=== PATIENT | male | born 1990 | race Caucasian/White ===

== ENCOUNTER → 2021-09-21 | Emergency (ER) | payer OTHER ==
[~2021-09-21] VITALS: Ht 170.2 cm; Wt 60.8 kg
[~2021-09-21] MED LIST: BUPRENORPHINE HCL 8 MG TAB.SUBL SL ONE; NALO4SPR BNOSTRILS
--- NOTE | 2021-09-21 10:15 | NUR ---
BIBLAPD, C/O ABDOMINAL PAIN 12/24, NAUSEA AND VOMITING, X2DAYS, PER [employer] PT IS WITHDRAWING FROM HEROINE AND METH, NEED CLEARANCE TO GO BACK TO [facility]. THE PATIENT IS ALERT AND ORIENTED X4. IN ROOM AIR AND DENIES SOB. RESPIRATION REGULAR AND UNLABORED. ATTACHED TO THE MONITOR. WILL CONTINUE TO MONITOR THE PATIENT.
--- NOTE | 2021-09-21 12:32 | NUR ---
SS consult: SS consult requested for homelessness & drug abuse. The pt. is a 31-year-old male who was BIBLAPD due to abdominal pain and vomiting x 2 days per EMR. Upon SS consult, the pt. is alert & oriented x 4 and makes good eye contact. The pt. presents with dysphoric mood & affect. The pt. denies SI/HI and denies hallucinations. SW explored pt.'s psych Hx. Pt. states he has been diagnosed with Schizophrenia in the past and is not on any psychotropic medications. SW explored pt.'s living situation. Pt. stated he has been experiencing intermittent homelessness. Pt. stated at times he resides at this grandmother, Sheryl Loo's [phone] home. SW explored pt.'s support system. Pt. stated his mother, Sharon Dial [phone] is also supportive. SW explored pt.'s drug & ETOH use. pt. stated he uses Meth & Heroin daily since the age of [age] and has never tried to go to a rehab. pillar worker provided support with motivational interviewing, education regarding opioid dependence, brief intervention and referral to treatment. SW offered MAT resources and pt. is agreeable: [facility]: [address] [place] [address] Intake hours: 5:45am-9:00am, walk-ins Monday, Monday, [facility]: [address] [place] [address] Intake hours: 5:45am-12:30pm, Monday and [facility]: [id number] [place] [id number] Intake hours: 8:00am-2:00pm, Monday through Monday Patient appears to be at the preparation phase of change with his substance dependence. SW provided homeless resources and pt. accepted them Pt. signed homeless waiver and it was placed in the pt.'s chart. Pt. has agreed to seek MAT after being released from half-way. SW spoke to officers": Perry Tirado # [id number] and Officer Gabriel #[id number] who stated this pt. is in custody and they will be taking him to the [facility]-way once discharged. Noted. SW discussed this case with Dr. Francesco Giang who administered Buprenorphine at 1201 to mange withdrawal symptoms per EMR. Year-round shelters: [facility] [address] [place] [address] ; [facility] [address] [place] [address]; [facility] [id number] [facility] [address] Winter Shelters: SPA 2 | [facility] ChurcProvider: [facility] Address: Confidential (call for location ) Population Served: Coed # of Beds: 57 SPA 4 | [facility] Provider: [facility] Address: [address] [place] [address] # of Beds: 49 Population Served: Coed SPA 6 | [facility] Provider: [facility] Address: [address] [place], [place] [id number] # of Beds: 49 Population Served: Coed [facility] Provider: Jean-Claude Malhotra DERocío Address: [address] [facility] [address] # of Beds: 20 Population Served: Women JOSEPH Facility Provider: [facility] Last Address: [address] [facility] [address] # of Beds: 30 Population Served: Women SPA 8 | [facility] Provider: Yudith of Brenda Address: [address] [facility] [address] # of Beds: 65 Population Served: Coed Hygiene: [facility]: [address] [place] ; [facility] [address] [facility] ; [facility] [address] [place] Shaq Irvin . Food Resources: [place] [facility] at [facility]- [address] [facility]; Meet Each Need with [facility] ([facility]) [address] [address] [place]; [facility] [address] [facility]; [facility] [address] [facility]. Mental Health resources provided: [facility] [address] [place], [place] [address] ; [facility] [address] [facility] [address], [place], [place] [id number] ; [facility] [address] [facility] [place], [place] [id number] ; [facility] [address] [place], [place] [address] Healthcare Clinics: [facility] [address] [facility], [address] [place]. [place] ; [facility] [address] [facility] [address] [place] [address]; [facility] [place] [address] [place] [address] [phone]) [phone] Counseling--Outpatient [facility] [address] [facility], [place] [address] (Specializes in in-depth psychotherapy for emotional distress: anxiety, depression, interpersonal conflicts, life transitions, childhood abuse) [facility] [address] [place] [address] (Assist with solving problem marital difficulties, separation & divorce, aging parents, & grief, chronic & terminal illness) [facility] [address] [place] [address] (Deal with loss & grief, anxiety, marital difficulties) Homebound/Mental Health Services [address] [facility], [address] [place], [place] [address] (Provide in-home mental services to people who are incapable of leaving their homes) [facility] [address] [place] [address] [facility] [address] [place] [address] PSYCHIATRIC OUTPATIENT SERVICES [facility] Partial Hospitalization and Intensive Outpatient Program (Managed Care and [place] Only)[address] [facility] [phone] [facility] Partial Hospitalization and Outpatient [address] [place], [place] [phone] [facility] [place] Sht[address] [facility]. [address] [place], [place] [phone] [facility] Partial Hospitalization and Outpatient [id number] [facility] Negra, [phone] Substance Abuse resources provided included: [facility] Substance Abuse Self-Helpline ([facility]) ; [facility] [address] [facility]. [place] [id number] ; [facility] [address] [facility] [address] ; [facility] Rehabilitation Program [address] [facility] [address] ; [facility] [address] [facility] [address] ; [facility] [address] [facility] [address] ; Yeimi [facility] [address] [facility] [address] ; [facility] Substance Abuse Helpline([facility])-[facility] ; [facility] ; [facility] [place]; [facility] [place]; [facility] [place]; [facility] Sha[facility]; [facility] [place]; [facility] [place] [place]; [facility], [facility]. [place]; Alcoholics Anonymous -[facility]; Sammie ; Marijuana Anonymous -[facility]; Narcotics Anonymous [email or web address];
[2021-09-21 12:33] VITALS: BP 98/78
--- NOTE | 2021-09-21 12:34 | NUR ---
Patient discharged to [facility] in stable condition. Written and verbal after care instructions given. Patient verbalizes understanding of instruction.
== END ==
LOC: ER 09:43
DX: F11.23 Opioid dependence with withdrawal (principal); F19.10 Other psychoactive substance abuse, uncomplicated